=== PATIENT | male | born 1970 | race African-American/Black ===

== ENCOUNTER 2016-07-06 08:38 | Day surgery (SDC) | payer BC ==
[2016-07-05 13:07] VITALS: BMI 38.0
[2016-07-06] MEDS ORDERED: PROPOFOL 20 ML ONE (09:39)
[2016-07-06 11:03] VITALS: TEMP 98
[2016-07-06 12:52] VITALS: BP 116/79; PULSE 69
--- NOTE | 2016-07-07 12:20 | PATH ---
Surgical Pathology Report Patient Name: LONNIE DUNHAM [facility], [place]. Rec. #: [id number] /Age/Gender: 1970 (Age: 45) / M Account: [id number] Location: [facility]OS[facility] Taken: 07/06/2016 Received: 07/06/2016 Reported: 07/07/2016 Physicians: Mamadou Ji D.O. Specimen(s) Received A: BX ANTRAL EROSION B: BX GASTRIC NODULES Clinical History Screening pre-gastric sleeve surgery Gastritis, gastric nodules Final Diagnosis A. STOMACH, ANTRAL EROSIONS, BIOPSY: SEVERE CHRONIC ACTIVE GASTRITIS WITH ULCERATION, REACTIVE GASTROPATHY, AND FOCAL INTESTINAL METAPLASIA. NO DYSPLASIA IDENTIFIED. IMMUNOSTAIN FOR H. PYLORI IS POSITIVE (MANY ORGANISMS). B. STOMACH, GASTRIC NODULES, BIOPSY: MODERATE CHRONIC ACTIVE GASTRITIS WITH REACTIVE GASTROPATHY. IMMUNOSTAIN FOR H. PYLORI IS POSITIVE (MANY ORGANISMS). Electronically Signed Kwadwo Stephenson M.D. Gross Description A. Received in formalin, labeled "biopsy antral erosions" are 3 salvador, irregular portions of soft tissue ranging from 0.2-0.3 cm. in greatest dimension. The specimens are submitted in toto in one cassette. B. Received in formalin, labeled "biopsy gastric nodules" are 6 salvador, irregular portions of soft tissue ranging from 0.3-0.5 cm. in greatest dimension. The specimens are submitted in toto in one cassette. 07/06/201607/06/2016
== END 2016-07-06 12:05 | disposition home or self-care (01) ==
LOC: JASU-ENDO 08:38
PROVIDERS: ATTEND Internal Medicine Gastroenterology
PROC: 0DB68ZX Excision of Stomach, Via Natural or Artificial Opening Endoscopic, Diagnostic (ICD-10-PCS; principal; 2016-07-06 09:30)
DX: Z01.818 Encounter for other preprocedural examination (principal); E66.01 Morbid (severe) obesity due to excess calories; K25.9 Gastric ulcer, unspecified as acute or chronic, without hemorrhage or perforation; G47.33 Obstructive sleep apnea (adult) (pediatric)
CPT/HCPCS: 36415; 82941; 88305-TC; 88342-TC

== ENCOUNTER 2016-10-12 09:20 | Day surgery (SDC) | payer BC ==
[2016-10-12 09:55] VITALS: BMI 38.1
[2016-10-12] MEDS ORDERED: LIDOCAINE HCL 2% (20ML MULTI-DOSE VIAL) NR ONE (10:08)
[2016-10-12] MEDS ORDERED: PROPOFOL 20 ML ONE ×2 (10:08)
[2016-10-12 10:48] VITALS: TEMP 98.1
[2016-10-12 13:19] VITALS: BP 130/80; PULSE 76
--- NOTE | 2016-10-13 13:56 | PATH ---
Surgical Pathology Report Patient Name: LONNIE DUNHAM [facility]. Rec. #: [id number] /Age/Gender: 1970 (Age: 45) / M Account: [id number] Location: [facility]-ENDOSCOPY Taken: 10/12/2016 Received: 10/12/2016 Reported: 10/13/2016 Physicians: Mamadou Ji D.O. Specimen(s) Received BX GASTRIC EROSION Clinical History Follow up gastric ulcer Gastric erosions Final Diagnosis STOMACH, EROSION, BIOPSY: GASTRIC ANTRAL AND OXYNTIC MUCOSA WITH ACTIVE MARKED CHRONIC GASTRITIS AND REACTIVE GASTROPATHY WITH SURFACE EROSIONS. IMMUNOSTAIN FOR H. PYLORI IS POSITIVE FOR ORGANISMS (MANY ORGANISMS). Comment: Special stain for amyloid is pending; results will be reported in an addendum. Electronically Signed Deric Huizar M.D. Addendum Reported: 10/16/2016 Addendum Diagnosis No amyloid deposits are identified with Congo red stain (performed and interpreted at [facility], [place], [place] ([id number]). Deric Huizar M.D. Gross Description Received in formalin, labeled "biopsy gastric erosion" are 5 salvador, irregular portions of soft tissue ranging from 0.3-0.5 cm in greatest dimension. The specimens are submitted in toto in one cassette. /10/12/201610/12/2016
== END 2016-10-12 11:30 | disposition home or self-care (01) ==
LOC: JASU-ENDO 09:20
PROVIDERS: ATTEND Internal Medicine Gastroenterology
PROC: 0DB68ZX Excision of Stomach, Via Natural or Artificial Opening Endoscopic, Diagnostic (ICD-10-PCS; principal; 2016-10-12 10:00)
DX: K29.00 Acute gastritis without bleeding (principal)
CPT/HCPCS: 88305-TC; 88342-TC